=== PATIENT | male | born 1970 | race Caucasian/White ===

== ENCOUNTER 2017-04-28 07:18 | Day surgery (SDC) | payer OTHER ==
[~2017-04-28 07:18] MED LIST: LIDOCAINE 100 MG SYRINGE; SUGAMMADEX SODIUM 200 MG/2 ML VIAL IV
[2017-04-28 08:44] LABS: ADD MAN DIFF? NO
[2017-04-28 09:16] LABS: INR 0.94; PROTIME 12.7 Sec (11.9-14.9)
[2017-04-28 09:17] LABS: PARTIAL THROMBOPLASTIN TIME 33.4 Sec (25.0-35.0)
[2017-04-28 09:18] LABS: ANION GAP 12 (8-16); CARBON DIOXIDE 26 mmol/L (21-31); CHLORIDE 108 mmol/L (97-110); GLUCOSE 88 mg/dl (70-220)
[2017-04-28 09:19] LABS: BASOPHIL # 0.1 10^3/ul (0.0-0.1); BASOPHILS % 1.4 % (0.0-2.0); EOSINOPHILS # 0.1 10^3/ul (0.0-0.5); EOSINOPHILS % 2.2 % (0.0-7.0); HEMATOCRIT 44.4 % (42.0-52.0); HEMOGLOBIN 14.9 g/dl (14.0-18.0); LYMPHOCYTES # 1.8 10^3/ul (0.8-2.9); LYMPHOCYTES % 27.3 % (15.0-51.0); MEAN CORPUSCULAR HGB CONC 33.6 g/dl (32.0-37.0); MEAN CORPUSCULAR VOLUME 95.3 fl (82.0-101.0); MEAN PLATELET VOLUME 10.4 fl (7.4-10.4); MONOCYTE # 0.6 10^3/ul (0.3-0.9); MONOCYTES % 8.7 % (0.0-11.0); NEUTROPHIL # 3.9 10^3/ul (1.6-7.5); NEUTROPHILS % 60.1 % (39.0-77.0); PLATELET COUNT 278 10^3/UL (140-415); RED BLOOD COUNT 4.66 10^6/ul (4.70-6.10); RED CELL DISTRIBUTION WIDTH 12.9 % (11.5-14.5)
[2017-04-28 09:19] LABS: WHITE BLOOD COUNT 6.5 10^3/ul (4.8-10.8)
[2017-04-28 09:21] LABS: BLOOD UREA NITROGEN 15 mg/dl (7-20); CALCIUM 9.2 mg/dl (8.4-10.2); CREATININE 0.63 mg/dl (0.61-1.24); POTASSIUM 3.9 mmol/L (3.5-5.1); SODIUM 142 mmol/L (135-144)
[2017-04-28] MEDS ORDERED: SOD CHLORIDE 0.9% 1,000 ML IV (10:30)
[2017-04-28] MEDS ORDERED: PROPOFOL 0 ML (11:02)
[2017-04-28] MEDS ORDERED: CEFAZOLIN 1 GM INJ (11:03)
[2017-04-28] MEDS ORDERED: FENTAnyl 50 MCG/ML VIAL (11:04)
[2017-04-28] MEDS ORDERED: ROCURONIUM 50 MG INJ (11:05)
[2017-04-28] MEDS ORDERED: ONDANSETRON 4 MG INJ (11:05)
[2017-04-28] MEDS: CEFAZOLIN 1 GM/50 ML (PMX) 50 ML IVPB (13:25)
[2017-04-28] MEDS ORDERED: KETOROLAC 30 MG INJ IV (13:30)
[2017-04-28] MEDS: BUPIVACAINE 0.25% (MPF) 30 ML INJ (13:37)
[2017-04-28] MEDS ORDERED: PROPOFOL 20 ML (13:55)
[2017-04-28] MEDS: POLYMYXIN/BACITRACIN 1L IRRIG (14:06)
[2017-04-28] MEDS ORDERED: HYDROmorphONE 1 MG/ML SYG IV (14:30)
[2017-04-28] MEDS ORDERED: HYDROCODONE/APAP (5/325) TAB PO (14:30)
[2017-04-28] MEDS ORDERED: ONDANSETRON 4 MG INJ IV (14:30)
[2017-04-28] MEDS: FENTAnyl 50 MCG/ML VIAL IV ×2 (14:44→15:11)
[2017-04-28] MEDS: HYDROmorphONE (0.2 MG/ML) 10ML SYG IV ×2 (14:48→14:56)
[2017-04-28] MEDS: ONDANSETRON 4 MG INJ IV (14:48)
[2017-04-28] MEDS: HYDROCODONE/APAP (5/325) TAB PO (16:22)
== END 2017-04-28 16:55 | disposition home or self-care (01) ==
LOC: SDS 07:18
DX: K43.6 Other and unspecified ventral hernia with obstruction, without gangrene (principal); K42.0 Umbilical hernia with obstruction, without gangrene
CPT/HCPCS: 49561; 80048; 85025; 85610; 85730; 88302

== ENCOUNTER 2017-05-20 11:17 | Day surgery (SDC) | payer OTHER ==
[2017-05-21] MEDS ORDERED: LIDOCAINE 100 MG SYRINGE (17:28)
[2017-05-21] MEDS ORDERED: PROPOFOL 40 ML (17:28)
== END 2017-05-20 14:03 | disposition home or self-care (01) ==
LOC: GIL 11:17
DX: K44.9 Diaphragmatic hernia without obstruction or gangrene (principal); K29.70 Gastritis, unspecified, without bleeding; K21.0 Gastro-esophageal reflux disease with esophagitis
CPT/HCPCS: 43239; 87081